=== PATIENT | female | born 1970 | race Caucasian/White ===

== ENCOUNTER 2017-05-22 16:05 | Inpatient (IN) | payer OTHER ==
[~2017-05-22] VITALS: Ht 152.4 cm; Wt 73.0 kg
[2017-05-22 16:17] VITALS: Ht 152.4 cm; Wt 73.0 kg
[2017-05-22 17:59] LABS: BASOPHIL % 0.3 % (0-2); PLATELET COUNT 219 x10^3mcL (130-400)
[2017-05-22 18:03] LABS: microscopic required? YES; urine erythrocyte 3+ (NEGATIVE)
[2017-05-22 18:10] LABS: ALBUMIN 3.7 g/dL (3.4-5.0); BILIRUBIN TOTAL 0.41 mg/dL (0.20-1.00); CALCIUM 8.6 mg/dL (8.5-10.1); CARBON DIOXIDE 26.3 mmol/L (21-32); CREATININE SERUM 1.1 mg/dL (0.6-1.0); POTASSIUM SERUM 3.9 mmol/L (3.5-5.1); TOTAL PROTEIN, SERUM 7.3 g/dL (6.4-8.2)
[2017-05-22 19:46] LABS: T3 TOTAL 1.57 ng/mL
[2017-05-22 19:50] LABS: AMPHETAMINE QUAL UR NONE DETECTED (NEG <=1000)
[2017-05-22 20:01] LABS: FREE T4 1.13 ng/dL (0.76-1.46); FREE THYROXINE INDEX 2.8 ug/dL (1.4-4.5); T4(THYROXINE) 8.1 ug/dL (4.7-13.3)
[2017-05-22 20:17] VITALS: BP 156/83
[2017-05-22 20:47] LABS: CHOLESTEROL/HDL RATIO 4.7; MAGNESIUM 1.9 mg/dL (1.8-2.4); PHOSPHOROUS 4.1 mg/dL (2.5-4.9)
[2017-05-23 06:01] VITALS: BP 144/70
[2017-05-23 06:32] LABS: PLATELET COUNT 209 x10^3mcL (130-400); RED CELL DISTRIBUTION WIDTH 14.1 % (11.5-14.5)
[2017-05-23 06:38] LABS: CALCIUM 8.3 mg/dL (8.5-10.1); CARBON DIOXIDE 24.1 mmol/L (21-32); CHLORIDE SERUM 108 mmol/L (98-107); CREATININE SERUM 0.9 mg/dL (0.6-1.0); GFR1 > 60 mL/min; GLUCOSE SERUM 88 mg/dL (74-106); PHOSPHOROUS 3.2 mg/dL (2.5-4.9); POTASSIUM SERUM 3.7 mmol/L (3.5-5.1); SODIUM SERUM 142 mmol/L (136-145)
[2017-05-23 09:19] VITALS: BP 147/76
[2017-05-23 12:53] VITALS: BP 144/75
[2017-05-23 16:31] VITALS: BP 147/74
[2017-05-23 21:18] VITALS: BP 112/55
[2017-05-24 05:31] VITALS: BP 117/56
[2017-05-24 05:58] VITALS: BP 126/72
[2017-05-24 07:38] LABS: CALCIUM 8.2 mg/dL (8.5-10.1); CARBON DIOXIDE 22.5 mmol/L (21-32); CHLORIDE SERUM 106 mmol/L (98-107); CREATININE SERUM 0.9 mg/dL (0.6-1.0); GFR1 > 60 mL/min; GLUCOSE SERUM 92 mg/dL (74-106); POTASSIUM SERUM 3.9 mmol/L (3.5-5.1); SODIUM SERUM 139 mmol/L (136-145)
[2017-05-24 09:05] VITALS: BP 143/65
[2017-05-24] MEDS ORDERED: APAP/HYDROCODON1 T13 PO (12:58)
[2017-05-24] MEDS ORDERED: FLO4 PO (12:59)
[2017-05-24 13:43] VITALS: BP 143/65
[2017-05-24 18:21] VITALS: BP 143/65
== END 2017-05-24 14:12 | disposition home or self-care (01) | DRG 694 ==
LOC: ED 16:05 → DU 18:57 → MU 05-23 19:00
PROVIDERS: Emergency Medicine; Family Medicine
DX: N13.2 Hydronephrosis with renal and ureteral calculous obstruction (principal); N17.0 Acute kidney failure with tubular necrosis; K76.0 Fatty (change of) liver, not elsewhere classified; E87.8 Other disorders of electrolyte and fluid balance, not elsewhere classified
CPT/HCPCS: 83880; 84439; J1885; J7030